=== PATIENT | male | born 1995 | race Caucasian/White ===

== ENCOUNTER 2021-04-14 05:12 | Emergency (ER) | payer OTHER ==
[~2021-04-14] VITALS: Ht 175.3 cm; Wt 66.0 kg
[2021-04-14] MEDS ORDERED: IV NORMAL SALINE 1,000ML 1,000 ML IV SCH (05:30)
[2021-04-14] MEDS ORDERED: ONDANSETRON PF 4 MG/2 ML VIAL. IVP ONE ×2 (05:30→09:15)
[2021-04-14] MEDS ORDERED: FAMOTIDINE 20 MG/2 ML VIAL IVP ONE (05:45)
[2021-04-14] MEDS ORDERED: KETOROLAC 15 MG/ML VIAL. IVP ONE (05:45)
[2021-04-14 05:46] LABS: BASO % 0 % (0-3); EOS % 0 % (0-3); HEMOGLOBIN 15.7 g/dL (13.0-17.5); LYMPH # 0.7 x10^3/uL (1.0-4.8); LYMPH % 4 % (24-48); MEAN CORPUSCULAR HEMOGLOBIN 31 pg (25-35); MEAN CORPUSCULAR HGB CONC 34 g/dL (31-37); MEAN CORPUSCULAR VOLUME 90 fL (79-100); MONO % 7 % (0-9); NEUT % 89 % (31-73); PLATELET COUNT 316 x10^3/uL (140-400); RED BLOOD COUNT 5.11 x10^6/uL (4.30-5.70); RED CELL DISTRIBUTION WIDTH 12.9 % (11.5-14.5); WHITE BLOOD COUNT 15.7 x10^3/uL (4.0-11.0)
[2021-04-14 05:52] LABS: ANION GAP 15 (6-14); BLOOD UREA NITROGEN 13 mg/dL (8-26); BUN/CREATININE RATIO 11 (6-20); CALCIUM 9.8 mg/dL (8.5-10.1); CARBON DIOXIDE 22 mmol/L (21-32); CHLORIDE 100 mmol/L (98-107); CREATININE 1.2 mg/dL (0.7-1.3); GFR 74.4; GLUCOSE 142 mg/dL (70-99); POTASSIUM 4.6 mmol/L (3.5-5.1); SODIUM 137 mmol/L (136-145)
--- NOTE | 2021-04-14 05:52 | PHYS DOC ---
Past History Past Medical History: No Pertinent History (JERROD PEOPLES DO) Past Surgical History: No Surgical History (JERROD PEOPLES DO) Smoking: Non-smoker Alcohol Use: Occasionally Drug Use: None (JERROD PEOPLES DO) General Adult EDM: Chief Complaint: ABDOMINAL PAIN HPI: HPI: 25-year-old male presents via EMS with sudden onset of right lower quadrant abdominal pain with associated nausea and vomiting as well as "loose stools ". Patient reports the symptoms started at approximately 0100 this morning. Denies trauma. Patient denies known sick contacts. Denies exposure to COVID-19. Patient has been Covid vaccinated. EMS reports giving patient 50 mcg of fentanyl in route. (JERROD PEOPLES DO) Review of Systems: Review of Systems: Constitutional: Denies fever or chills Eyes: Denies redness or eye pain HENT: Denies nasal congestion or sore throat Respiratory: Denies cough or shortness of breath Cardiovascular: Denies chest pain or palpitations GI: Reports right lower quadrant abdominal pain, nausea, vomiting, and "loose stools " : Denies dysuria or hematuria Musculoskeletal: Denies joint pain; reports right flank pain Integument: Denies rash or skin lesions Neurologic: Denies headache, focal weakness or sensory changes Complete systems were reviewed and found to be within normal limits, except as documented in this note. (JERROD PEOPLES DO) Current Medications: Current Meds: Current Medications Medications (Trade) Dose Ordered Sig/Ange Start Time Stop Time Status Last Admin Dose Admin Famotidine (Pepcid Vial) 20 mg 1X ONCE 04/14/21 05:45 04/14/21 05:46 UNV Ketorolac Tromethamine (Toradol 15mg Vial) 15 mg 1X ONCE 04/14/21 05:45 04/14/21 05:46 UNV Ondansetron HCl (Zofran) 4 mg 1X ONCE 04/14/21 05:30 04/14/21 05:31 DC 04/14/21 05:37 4 MG Sodium Chloride 1,000 ml @ 1,000 mls/hr Q1H 04/14/21 05:30 04/14/21 06:29 04/14/21 05:37 1,000 MLS/HR (JERROD PEOPLES DO) Allergies: Allergies: Allergies Coded Allergies Type Severity Reaction Last Updated Verified No Known Drug Allergies 04/14/21 No (JERROD PEOPLES DO) Physical Exam: PE: Constitutional: Well developed, well nourished, no acute distress, non-toxic appearance HENT: Normocephalic, atraumatic Eyes: Conjunctiva normal, no discharge Neck: Normal range of motion, supple Lungs & Thorax: No respiratory distress, equal chest rise and fall Abdomen: Soft, right lower quadrant tenderness, voluntary guarding Skin: Warm, dry, no erythema, no rash Back: No tenderness, right CVA tenderness Extremities: No tenderness, ROM intact, no edema Neurologic: Alert and oriented X 3, no focal deficits noted Psychologic: Affect normal, judgment normal (JERROD PEOPLES DO) Current Patient Data: Vital Signs: Vital Signs Date Time Temp Pulse Resp B/P (MAP) Pulse Ox O2 Delivery O2 Flow Rate FiO2 04/14/21 05:12 98.0 92 18 122/65 (84) 97 (JERROD PEOPLES DO) EKG: EKG: @0550 NSR at 80bpm, NO ST elevation, QRS 80ms, QT/QTc 378/440ms. LVH (JERROD PEOPLES DO) Radiology/Procedures: Radiology/Procedures: [] (JERROD PEOPLES DO) Impressions: PQRS Compliance Statement: One or more of the following individualized dose reduction techniques were utilized for this examination: 1. Automated exposure control 2. Adjustment of the mA and/or kV according to patient size 3. Use of iterative reconstruction technique CT ABDOMEN+PELVIS WO Clinical Indication: Reason: RLQ and right flank pain, eval for ureteral calculi / Spl. Instructions: / History: Comparison: None. Technique: Helical CT imaging of the abdomen and pelvis is performed without IV or oral contrast. Findings: Evaluation of solid organs and bowel is limited without oral and IV contrast, decreasing sensitivity for detection of pathology. Lung bases are clear. Cardiac size normal. The liver, gallbladder, spleen, pancreas, adrenal glands, and abdominal aorta are normal. No hydronephrosis or perinephric stranding is identified. There is no renal or ureteral calculus. The stomach is unremarkable. There is no dilated small bowel. The appendix is normal, no periappendiceal inflammation. There is a 5 mm appendicolith near the tip of the appendix. There is a second tiny appendicolith in the mid appendix. No colon wall thickening is identified. No abdominal adenopathy or free fluid. There are several subcentimeter pericecal lymph nodes, coronal image 43. The urinary bladder is normal. The prostate and seminal vesicles are normal. There is no pelvic free fluid. No acute bone abnormality. IMPRESSION: 1. There are several subcentimeter pericecal lymph nodes suggesting mesenteric adenitis. 2. The appendix is normal. Electronically signed by: Jose L Hendricks MD (04/14/2021 6:24 AM) [facility] DICTATED AND SIGNED BY: JOSE L HENDRICKS MD DATE: 04/14/21616 CC: PCP,UNKNOWN; JERROD PEOPLES DO ~MTH0 0 (RAGHU IBARRA DO) Heart Score: C/O Chest Pain: N/A (JERROD PEOPLES DO) Course & Med Decision Making: Course & Med Decision Making Pertinent Labs and Imaging studies reviewed. (See chart for details) Patient presents with right lower quadrant abdominal discomfort with associated nausea/vomiting/diarrhea. Patient reports symptoms woke him out of sleep. Denies known sick contacts. Pain/nausea addressed. IV fluid hydration given. Labs ordered and pending. CT abdomen/pelvis also ordered and pending. 0600-Signout given to Dr. Ibarra for further evaluation and final disposition. Discussed current findings and plan with patient, who acknowledges understanding and agreement. (JERROD PEOPLES DO) Course & Med Decision Making The patient CT scan showed mesenteric adenitis. This tends to be viral. The patient does have a significant white count with left shift. His lactic acid is elevated. The patient does look clinically dry. I will go and treat him with Zosyn and 2 L normal saline. His repeat lactic acid is 2.4. The patient would prefer not to be admitted to the hospital and I do not believe absolutely necessary. I will continue to treat him with 10 days of Augmentin at home. He is stable for discharge at this time. (RAGHU IBARRA DO) Dragon Disclaimer: Dragon Disclaimer: This electronic medical record was generated, in whole or in part, using a voice recognition dictation system. (JERROD PEOPLES DO) Departure Departure: Impression: Primary Impression: Abdominal pain Qualified Codes: R10.31 - Right lower quadrant pain Additional Impression: Mesenteric adenitis Disposition: HOME / SELF CARE / HOMELESS Condition: STABLE Patient Instructions: Mesenteric Adenitis Scripts Amoxicillin/Potassium Clav (AUGMENTIN 875-125 TABLET) 1 Each Tablet 1 TAB PO BID for mesenteric adenitis for 10 Days, #20 TAB 0 Refills Prov: RAGHU IBARRA DO 04/14/21 JERROD PEOPLES DO Apr 14, 2021 05:52 RAGHU IBARRA DO Apr 14, 2021 08:57
--- NOTE | 2021-04-14 05:56 | EKG ---
[address] [address] Test Date: 2021-04-14 Test Time: 05:50:52 Pat Name: JIMY ROME Department: Room: Gender: M Director Corporate: : 1995 Requested By: JERROD PEOPLES Order Number: [id number] Reading MD: Jarred Talbert MD Measurements Intervals Paron Rate: 80 P: 50 MA: 132 QRS: 45 QRSD: 80 T: 50 QT: 378 QTc: 440 Interpretive Statements SINUS RHYTHM Electronically Signed On 04-15-2021 13:33:47 MEDICAL VIDEOGRAPHER by Jarred Talbert MD
[2021-04-14 06:08] LABS: ALBUMIN 4.8 g/dL (3.4-5.0); ALBUMIN/GLOBULIN RATIO 1.4 (1.0-1.7); ALK PHOS 73 U/L (46-116); ALT (SGPT) 22 U/L (16-63); AST (SGOT) 22 U/L (15-37); DIRECT BILIRUBIN 0.2 mg/dL (0.0-0.2); LIPASE 189 U/L (73-393); TOTAL PROTEIN 8.2 g/dL (6.4-8.2)
--- NOTE | 2021-04-14 06:26 | RAD ---
PQRS Compliance Statement: One or more of the following individualized dose reduction techniques were utilized for this examinat ion: 1. Automated exposure control 2. Adjustment of the mA and/or kV according to patient size 3. Use of iterative reconstruction technique CT ABDOMEN+PELVIS WO Clinical Indication: Reason: RLQ and right flank pain, eval for ureteral calculi / Spl. Instructions: / History: Comparison: None. Technique: Helical CT imaging of the abdomen and pelvis is performed without IV or oral contrast. Findings: Evaluation of solid organs and bowel is limited without oral and IV contrast, decreasing sensitivity for detection of pathology. Lung bases are clear. Cardiac size normal. The liver, gallbladder, spleen, pancreas, adrenal glands, and abdominal aorta are normal. No hydronep hrosis or perinephric stranding is identified. There is no renal or ureteral calculus. The stomach is unremarkable. There is no dilated small bowel. The appendix is normal, no periappendic eal inflammation. There is a 5 mm appendicolith near the tip of the appendix. There is a second tiny appendicolith in the mid appendix. No colon wall thickening is identified. No abdominal adenopathy or free fluid. There are several subcentimeter pericecal lymph nodes, coronal image 43. The urinary bladder is normal. The prostate and seminal vesicles are normal. There is no pelvic free fluid. No acute bone abnormality. IMPRESSION: 1. There are several subcentimeter pericecal lymph nodes suggesting mesenteric adenitis. 2. The appendix is normal. Electronically signed by: Jose L Hendricks MD (04/14/2021 6:24 AM) [facility]
[2021-04-14 06:35] LABS: % EOS 2 % (0-5); % LYMPHS 10 % (24-48); % MONOS 7 % (0-10); % SEGS 81 % (35-66)
[2021-04-14 06:36] LABS: PLT ESTIMATE ADEQUATE (ADEQUATE)
[2021-04-14] MEDS ORDERED: PIPERACILLIN/TAZOBACTAM 3.375 GM VIAL IV ONE (06:41)
[2021-04-14] MEDS ORDERED: IV NORMAL SALINE 50ML 50 ML ONE (06:41)
[2021-04-14] MEDS: IV NORMAL SALINE 1,000ML 1,000 ML IV SCH ×2 (06:43→07:16)
[2021-04-14] MEDS ORDERED: PIPERACILLIN/TAZOBACTAM 3.375 GM in IV NORMAL SALINE 50ML 50 ML IV ONE (06:45)
[2021-04-14] MEDS ORDERED: AMOX1TAB61 PO (08:55)
[2021-04-14] MEDS ORDERED: ONDA4TAB12 PO (09:12)
[2021-04-14 10:21] LABS: BACTERIA,URINE 0 /HPF (0-FEW); BILIRUBIN,URINE NEG (NEG); CLARITY,URINE CLEAR; COLOR,URINE YELLOW; GLUCOSE,URINE NEG (NEG); NITRITE,URINE NEG (NEG); RBC,URINE OCC /HPF (0-2); SQUAMOUS EPITHELIAL CELL,UR OCC /LPF; UROBILINOGEN,URINE 0.2 mg/dL (0.2 mg/dL)
[2021-04-14 10:30] VITALS: BP 116/46
== END 2021-04-14 10:30 | disposition home or self-care (01) ==
LOC: ER 05:12
DX: I88.0 Nonspecific mesenteric lymphadenitis (principal)
CPT/HCPCS: 36415; 74176; 80048; 80053; 80076; 81001; 82553; 83605; 83690; 84484; 85007; 85025; 85610; 85730; 93005; 96361; 96365; 96375; 96376; 99285; J1885; J2405; J2543; J3490; J7030